=== PATIENT | female | born 1935 | race Caucasian/White ===

== ENCOUNTER 2016-09-15 16:37 | Inpatient (IN) | payer OTHER ==
[~2016-09-15] VITALS: Ht 172.7 cm; Wt 89.8 kg
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
--- NOTE | 2016-09-15 16:50 | NUR ---
PT TO XRAY VIA STRETCHER
--- NOTE | 2016-09-15 17:17 | NUR ---
PT TO CT AT THIS TIME
--- NOTE | 2016-09-15 17:23 | RADIOLOGY REPORT ---
EXAMINATION: XR HIP, LEFT CLINICAL INFORMATION: Status post fall. Rule out fracture. COMPARISON: None TECHNIQUE: AP and frog-leg lateral views of the left hip. FINDINGS: There is a mildly comminuted fracture to the femoral neck, primarily primarily subcapital in location but with an additional oblique component extending towards the greater trochanter. No appreciable intertrochanteric component. There is mild valgus angulation at the fracture site. Mild degenerative arthritis is present in the hip joint with marginal osteophytes of the acetabulum. Mild degenerative arthritis is present at the pubic symphysis. Bones are osteopenic. Calcific atherosclerosis is present in the femoral artery. IMPRESSION: Mildly comminuted fracture of the left femoral neck.
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
[2016-09-15] MEDS ORDERED: ARTHRITIS PAIN650 M2 PO (18:18)
[2016-09-15] MEDS ORDERED: ATORVASTATIN CA10 M1 PO (18:19)
[2016-09-15] MEDS ORDERED: LOSARTAN POTAS100 M1 PO (18:20)
[2016-09-15] MEDS ORDERED: METFORMIN HCL500 M4 PO (18:20)
[2016-09-15] MEDS ORDERED: ALENDRONATE SOD70 M2 PO (18:20)
[2016-09-15] MEDS ORDERED: CENTRUM SILVER1 EAC3 PO (18:21)
[2016-09-15] MEDS ORDERED: ACTOS30 M1 PO (18:21)
[2016-09-15] MEDS ORDERED: LEVEMIR FL100 UNIT/1 SC (18:22)
[2016-09-15] MEDS ORDERED: CALTRATE 600+D1 EACH PO (18:22)
[2016-09-15] MEDS ORDERED: NOVOLOG100 UNIT/2 SC (18:23)
[2016-09-15] MEDS ORDERED: FISH OIL 1,001000 MG PO (18:23)
[2016-09-15] MEDS ORDERED: ASPIRIN EC81 M1 PO (18:24)
--- NOTE | 2016-09-15 18:28 | NUR ---
VBG DRAWN AND LEFT IN ROOM, RT CURRENTLY AT BEDSIDE GIVING NEB TX AND AWARE TO TAKE SAMPLE WITH HIM.
[2016-09-15 18:37] LABS: ABSOLUTE BASOPHIL COUNT 0 /CUMM (0.0-0.2); ABSOLUTE EOSINOPHIL COUNT 0.1 /CUMM (0.0-0.7); ABSOLUTE GRANULOCYTE CT 4.3 /CUMM (1.4-6.5); ABSOLUTE LYMPH COUNT 1.6 /CUMM (1.2-3.4); ABSOLUTE MONOCYTE COUNT 0.4 /CUMM (0.10-0.60); BASOPHIL % 0.8 % (0.0-2.0); EOSINOPHIL % 1.4 % (0-5); GRANULOCYTE % 67.2 % (42.2-75.2); HEMATOCRIT 33.3 % (37-47); MEAN CORPUSCULAR HGB 29.4 PG (27.0-31.0); MEAN CORPUSCULAR HGB CONC 33.1 G/DL (33.0-37.0); MEAN CORPUSCULAR VOLUME 88.8 FL (81.0-99.0); MEAN PLATELET VOLUME 8.7 FL (7.4-10.4); PLATELET COUNT 215 /CUMM (130-400); RBC DISTRIBUTION WIDTH 15.1 % (11.5-14.5); RED BLOOD CELL CT 3.76 /CUMM (4.20-5.40); WHITE BLOOD CELL COUNT 6.4 /CUMM (4.8-10.8)
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
[2016-09-15 18:44] LABS: PT 9.9 SEC (9.4-12.5); PTT 33 SEC (25-37)
--- NOTE | 2016-09-15 18:44 | RADIOLOGY REPORT ---
EXAMINATION:\H\ \N\XR CHEST CLINICAL INFORMATION: Hip fracture. COMPARISON: None TECHNIQUE: Frontal portable view of the chest was obtained. 5:55 PM FINDINGS: Lungs are clear. No pulmonary vascular congestion. No infiltrate or pleural effusion. The heart size is normal. The cardiac and mediastinal contours are normal. There are calcifications of the thoracic aorta. There are multilevel degenerative changes of dorsal spine. Degenerative spurring of humeral head of the right shoulder the glenohumeral joint. Superior subluxation of the right humeral head of the right shoulder suggesting chronic rotator cuff tear. IMPRESSION: Unremarkable examination.
--- NOTE | 2016-09-15 18:49 | NUR ---
DR MILNER SPEAKING WITH FAMILY ABOUT NATURE OF HIP FRACTURE AND SURGICAL OPTIONS, PT MAY GO TO OR THIS EVENING. PT IS TO REMAIN NPO
--- NOTE | 2016-09-15 19:00 | NUR ---
16FR BEY PLACED. 700ML CLEAR YELLOW URINE DRAINED. URINE CULTURE SENT PER PROTOCOL
--- NOTE | 2016-09-15 19:04 | NUR ---
KALE Hylton RN IN WITH PATIENT AND FAMILY FOR OR PREP
--- NOTE | 2016-09-15 19:11 | NUR ---
PT SEEN BY ANESTHESIA. OR CHECKLIST INITIATED.
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
--- NOTE | 2016-09-15 20:04 | Admission Certification ---
Admission Certification Certification Statement - As attending physician, I certify that at the time of - admission, based on clinical presentation, severity of - symptoms, need for further diagnostic testing and - therapeutic interventions, and risk of adverse outcomes - without in-hospital treatment, in my clinical assessment, - this patient requires an acute hospital stay for a minimum - of two nights or longer. I have also considered psychsocial - factors such as support system, advanced age, financial - issues, cognitive issues, and failed out-patient treatments, - past re-admission history, safety of patient, and lack of - compliance as applicable. Specific rationale supporting this admission is: Left femur neck fracture
--- NOTE | 2016-09-15 20:12 | History & Physical ---
See Addendum NIRU MAN MD 09/15/16 2012: General Information and HPI MD Statement: I have seen and personally examined FERMIN VELOZ and documented this H&P. The patient is a 81 year old F who presented with a patient stated chief complaint of [leg pain status post fall]. Source of Information: patient, family Exam Limitations: no limitations History of Present Illness: 81-year-old female with past medical history of insulin-dependent diabetes mellitus, hypertension, hyperlipidemia, breast cancer status post radiation and lumpectomy, was brought in for evaluation status post fall. Patient fell forward when she was trying to get off the curb, and fell on her hip, with left elbow and head trauma. She was unable to move her left leg due to pain. The fall was witnessed by her , who was not able to catch her and she fell. Patient denies palpitations, dizziness, shortness of breath. No loss of consciousness and seizure-like activity was reported. X-ray done in the ED showed comminuted fracture of the left femoral neck without dislocation of the hip. Patient was medically cleared, and subsequently underwent open reduction internal fixation with cannulated screw placement on . Patient did well postop, reporting 0 out of 10 pain. Allergies/Medications Allergies: Coded Allergies: NO KNOWN ALLERGIES (03/02/12) Home Med list Acetaminophen (Arthritis Pain) 650 MG TABLET.ER 2 TAB PO QAM ARTHRITIS ( Reported) Alendronate Sodium 70 MG TABLET 1 TAB PO QWED OSTEOPOROSIS (Reported) in the morning, at least 30 minutes before the first food, beverage, or medication of the day Aspirin (Ecotrin*) 81 MG TABLET.DR 1 TAB PO DAILY HEART/BLOOD (Reported) Atorvastatin Calcium 10 MG TABLET 1 TAB PO DAILY CHOLESTEROL (Reported) Ca/D3/Mag#11/Zinc/Optical Instrument Specialist/Mihir/Bor (Caltrate 600+D Plus Tablet) 600 MG-800 TABLET 1 TAB PO DAILY SUPPLEMENT (Reported) Insulin Aspart (Novolog) 100 UNIT/ML VIAL DM (Reported) Insulin Detemir (Levemir Flextouch) 100 UNIT/ML (3 ML) INSULN.PEN 12 UNITS SC BID DM (Reported) Losartan Potassium 100 MG TABLET 1 TAB PO DAILY BP (Reported) Metformin HCl (Metformin HCl ER) 500 MG TAB.ER.24H 2 TAB PO BID DM (Reported) Multivit-Min/FA/Lycopen/Lutein (Centrum Silver Tablet) 0.4 MG-300 MCG-250 MCG TABLET 1 TAB PO DAILY SUPPLEMENT (Reported) [place]-3/Dha/Epa/Fish Oil (Fish Oil 1,000 MG Softgel) 1,000 MG (120 MG-180 MG) CAPSULE 1 CAP PO DAILY SUPPLEMENT (Reported) Pioglitazone HCl (Actos) 30 MG TABLET 1 TAB PO DAILY DM (Reported) Past History Travel History Traveled to [place] past 21 day No Medical History Neurological: NONE EENT: NONE Cardiovascular: hypertension, hyperlipidemia Respiratory: NONE Gastrointestinal: NONE Hepatic: NONE Renal: NONE Musculoskeletal: NONE Psychiatric: depression Endocrine: insulin dependent diabetes mellitus Cancer(s): BREAST CA sp radiation and lumpectomy Pneumonia Vaccine: 03/08/12 Influenza Vaccine: 01/26/12 Surgical History Surgical History: non-contributory Past Family/Social History Family History Relations & Conditions if any MOTHER Relation not specified for: *No pertinent family history Psychosocial History Who Do You Live With? spouse, child Services at Home: None Smoking Status: Never Smoked ETOH Use: denies use Illicit Drug Use: denies illicit drug use Functional Ability ADLs Independent: dressing, eating, toileting, bathing. Ambulation: independent IADLs Independent: shopping, housework, finances, food prep, telephone, transportation , medication admin. Review of Systems Review of Systems Constitutional: Denies: chills, fever, weakness. EENTM: Denies: visual changes. Cardiovascular: Denies: chest pain, orthopena, palpitations, peripheral edema. Respiratory: Denies: cough, short of breath, sputum production. GI: Denies: abdominal pain, bloating, constipation, diarrhea, nausea, changes in stool, vomiting. Genitourinary: Denies: dysuria. Exam & Diagnostic Data Last 24 Hrs of Vital Signs/I&O Vital Signs Date Time Temp Pulse Resp B/P B/P Pulse O2 O2 Flow FiO2 Mean Ox Delivery Rate 09/16 201 98.4 96 18 137/62 98 Nasal 2.0L Cannula 09/16 6 98 Nasal 2.0L Cannula 09/16 6 98.1 93 18 150/70 98 Nasal 2.0L Cannula 09/15 2018 98.3 88 16 184/81 97 Room Air 09/15 2000 98.0 88 16 173/79 06/01 1910 98.0 88 16 173/79 99 Room Air 09/15 1822 99 Room Air 09/15 1646 98.0 96 16 203/84 99 Room Air Intake & Output 09/16 0800 09/16 0000 09/15 1600 Intake Total Output Total 700 Balance -700 Output, Urine 700 Patient 89.811 kg Weight Physical Exam General Appearance Alert, Oriented X3, Cooperative, No Acute Distress Skin laceration to the left elbow HEENT PERRLA, EOMI, hematoma (4 cm diameter) over left side of the head, dry mucous membrane Neck Supple, No JVD, +2 Carotid Pulse wo Bruit, No LAD Lymphatic Axillary nl, Cervical nl Cardiovascular Normal S1, Normal S2, No Murmurs, tachycardic Lungs Clear to Auscultation, Normal Air Movement Abdomen Normal Bowel Sounds, Soft, No Tenderness Neurological Normal Speech Extremities chronic swelling due to venous insufficiency Vascular Normal Pulses, Pulses Symmetrical Last 24 Hrs of Labs/Romario: Laboratory Tests 09/15/16 1810: Anion Gap 13, Estimated GFR > 60, BUN/Creatinine Ratio 31.1 H, Glucose 221 H, Calcium 10.3 H, Total Bilirubin 0.3, AST 26, ALT 38, Alkaline Phosphatase 70, Troponin I < 0.01, Total Protein 7.4, Albumin 4.7, Globulin 2.7, Albumin/ Globulin Ratio 1.7, PT 9.9, INR 0.94, APTT 33, CBC w Diff NO MAN DIFF REQ, RBC 3.76 L, MCV 88.8, MCH 29.4, RDW 15.1 H, MPV 8.7, Gran % 67.2, Lymphocytes % 24.8, Monocytes % 5.8, Eosinophils % 1.4, Basophils % 0.8, Absolute Granulocytes 4.3, Absolute Lymphocytes 1.6, Absolute Monocytes 0.4, Absolute Eosinophils 0.1, Absolute Basophils 0, PUBS MCHC 33.1 Microbiology 09/15 1830 URINE ROUT: Urine Culture - RECD Diagnostic Data CXR Results EXAM TYPE: RAD - XRY-CHEST XRAY, ONE VIEW ONLY EXAMINATION:\H\ \N\XR CHEST CLINICAL INFORMATION: Hip fracture. COMPARISON: None TECHNIQUE: Frontal portable view of the chest was obtained. 5:55 PM FINDINGS: Lungs are clear. No pulmonary vascular congestion. No infiltrate or pleural effusion. The heart size is normal. The cardiac and mediastinal contours are normal. There are calcifications of the thoracic aorta. There are multilevel degenerative changes of dorsal spine. Degenerative spurring of humeral head of the right shoulder the glenohumeral joint. Superior subluxation of the right humeral head of the right shoulder suggesting chronic rotator cuff tear. IMPRESSION: Unremarkable examination. DICTATED BY: HANK HUNT MD DATE/TIME DICTATED:09/15/161839 Other Results EXAM TYPE: RAD - XRY-AP PELVIS EXAMINATION: XR PELVIS CLINICAL INFORMATION: Concern for hip fracture. COMPARISON: Plain films of the left hip 09/15/2016. TECHNIQUE: AP view of the pelvis. FINDINGS: Single AP view of the pelvis demonstrates demineralization of the visualized bones. No grossly displaced pelvic fractures are identified. The iliopectineal and ilioischial lines are intact and there is no diastases of the bilateral sacroiliac joints or pubic symphysis. There are mild degenerative changes involving the bilateral SI joints and pubic symphysis. There are severe degenerative changes involving the imaged lower lumbosacral spine. Redemonstrated is a linear lucency traversing the left femoral neck, corresponding to a recently identified mildly comminuted fracture of the left femoral neck. There is no appreciable dislocation of the left hip. The right hip appears to be grossly intact. IMPRESSION: No grossly displaced pelvic fractures. Acute mildly comminuted fracture of the left femoral neck without dislocation of the left hip. DICTATED BY: MARINE VENEGAS MD DATE/TIME DICTATED:09/15/162009 CONSUMER ANALYST:MOLLY EXAM TYPE: RAD - XRY-HIP 2-3 VIEWS, LEFT EXAMINATION: XR HIP, LEFT CLINICAL INFORMATION: Status post fall. Rule out fracture. COMPARISON: None TECHNIQUE: AP and frog-leg lateral views of the left hip. FINDINGS: There is a mildly comminuted fracture to the femoral neck, primarily primarily subcapital in location but with an additional oblique component extending towards the greater trochanter. No appreciable intertrochanteric component. There is mild valgus angulation at the fracture site. Mild degenerative arthritis is present in the hip joint with marginal osteophytes of the acetabulum. Mild degenerative arthritis is present at the pubic symphysis. Bones are osteopenic. Calcific atherosclerosis is present in the femoral artery. IMPRESSION: Mildly comminuted fracture of the left femoral neck. DICTATED BY: OLGA WORTHY MD DATE/TIME DICTATED:09/15/161716 CONSUMER ANALYST:MOLLY EXAM TYPE: CAT - CT CERV SPINE WO IV CONTRAST; CT HEAD WO IV CONTRAST EXAMINATION: CT HEAD AND CERVICAL SPINE WITHOUT CONTRAST CLINICAL INFORMATION: Head strike with hematoma. COMPARISON: Plain films of the cervical spine 07/20/2007. TECHNIQUE: Contiguous axial imaging was performed from the thoracic inlet to the vertex without intravenous administration of contrast. 2-D coronal and sagittal reformatted images of the cervical spine were obtained at the acquisition workstation. DLP: 1076 mGy-cm. FINDINGS: Head: Noncontrast CT imaging of the brain demonstrates a moderate to large high left parieto-occipital hematoma with associated soft tissue swelling. No acute intracranial hemorrhage, mass or mass effect or abnormal extra-axial fluid collections are identified. The density within the dural venous sinuses is within normal limits. The ventricles are normal in size, without hydrocephalus. There are no focal areas of hypoattenuation within a vascular distribution to suggest acute transcortical ischemia. The basilar cisterns are patent. No acute calvarial abnormality is identified. The imaged paranasal sinuses and mastoid air cells are well aerated. Cervical spine: Noncontrast CT of the cervical spine demonstrates mild multilevel degenerative changes of the cervical spine. There are mild to moderate degenerative changes of the cervical spine at the atlantoaxial articulation. No acute fracture or subluxation of the cervical spine is identified. Bilateral facet arthrosis contributes to varying degrees of neuroforaminal narrowing. Prevertebral soft tissues are within normal limits. The included bilateral lung apices are clear. IMPRESSION: 1. Large high left parieto-occipital hematoma and soft tissue swelling. Otherwise, no acute intracranial abnormality. 2. No acute cervical spine fracture or subluxation. DICTATED BY: MARINE VENEGAS MD DATE/TIME DICTATED:09/15/161819 EXAM TYPE: RAD - XRY-HIP 2-3 VIEWS, LEFT EXAMINATION: XR HIP, LEFT CLINICAL INFORMATION: Left hip pinning COMPARISON: 09/15/2016 TECHNIQUE: 18 intraoperative fluoroscopic images of the left hip. 2 views. Total fluoroscopic time 1 minute 16 seconds. FINDINGS: The subcapital left femoral neck fracture is again noted. There is placement of 3 cannulated screws across the fracture with near-anatomic alignment resulting. The femoral head is well-seated within its acetabulum. IMPRESSION: Fluoroscopic guidance of internal fixation of the left femoral neck fracture with anatomic alignment. DICTATED BY: NATE LAM MD DATE/TIME DICTATED:09/15/162302 Assessment/Plan Assessment: 81-year-old female with past medical history of insulin-dependent diabetes mellitus, hypertension, hyperlipidemia, breast cancer status post radiation and lumpectomy, was brought in for evaluation status post fall. X-ray done in the ED showed comminuted fracture of the left femoral neck without dislocation of the hip. Patient was medically cleared, and subsequently underwent open reduction internal fixation with cannulated screw placement on 09/15/2016. Patient admitted to for monitoring post-operatively. Problem list: # Left femoral neck fracture sp ORIF # Hypertension,HLD # IDDM # Hx of breast cancer # Left femoral neck fracture sp ORIF * Cefazolin X 2 dose * PT , TTWB with rolling walker * Watch h/h for ABLA post op * PP: Oxycodone 10 mg Q6P severe, IV tylenol 1000 mg Q6P moderate, PO tylenol Q6p mild # Hypertension,HLD * Continue Losartan 100 mg daily, Lipitor 10 mg daily, Aspirin 81 mg daily # IDDM * Levemir 12 units BID * Novolog tidac * Hold metformin and pioglitazone # Hx of breast cancer * Inform Dr. Carmen regarding patient's admission # Continue home meds Alendronate 70 mg qwed Vit D 1000 IU daily Fish oil cap Diet: CC2 PP: Oxycodone 10 mg Q6P severe, IV tylenol 1000 mg Q6P moderate, PO tylenol Q6p mild DVT ppx: alps and heparin SC FULL CODE As Ranked By This Provider Problem List: 1. Closed left hip fracture Core Measures/Miscellaneous Acute Coronary Syndrome ACS Diagnosis: No Cerebrovascular Accident CVA/TIA Diagnosis: No Congestive Heart Failure CHF Diagnosis: No Venous Thromboembolism VTE Risk Factors: Acute medical illness, Age > 40, Immobility, paresis [facility] prophylaxis d/t: No contraindications No VTE Pharm Prophylaxis d/t: No contraindications VTE Diagnosis: No VTE Type: NONE VTE Confirmed by (Test): NONE Severe Sepsis Severe Sepsis Present: No Septic Shock Septic Shock Present: No Miscellaneous Documentation Attending Case Discussed With: Dr Corey Primary Care Physician: Donnie EDMONDS MD Patient sees these Specialists Dr Jacobsen endocrinology Dr Carmen oncology Dr Krishnan radiation onc Level of Patient Care: General Medicine ANDREW OAKLEY 09/16/16 0004: Resident Review Statement Resident Statement: examined this patient, discussed with paid internship, agreed with paid internship, discussed with family, reviewed EMR data (avail), discussed with nursing , discussed with case mgmt, reviewed images, amended to note Other Findings: 81-year-old female with a past medical history of insulin-dependent diabetes mellitus, hypertension, hyperlipidemia, breast cancer status post surgery and radiation presented to the ER complains of left hip pain. According to the patient she was in her usual state of health up until this morning when she was getting onto the bus when she fell on the current and hit her left side. She states that she had her head against the wall. Denies any loss of consciousness, any seizure-like activity, any chest pain, palpitations, abnormal symptoms, lightheadedness, numbness, tingling sensation, eye rolling, urinary or fecal incontinence, tongue biting prior to the event occurring. Of note she's had a previous fall at home which was purely mechanical wear she tripped over the carpet. She denies any headache, abdominal pain, nausea, vomiting, shortness of breath, orthopnea, PND, lower extremity swelling. Vitals on admission hypertensive with a blood pressure 184/81, respiratory rate of 16, pulse of 88, afebrile saturating 97% on room air. On physical exam she is alert, and oriented 3 and in no acute distress lying comfortably in bed. HEENT revealed PERRLA, dry mucous membranes, hematoma 3cm x4cm located along left temporo-parietal area. Examination of the neck did not reveal an elevated JVP, no lymphadenopathy. Cardiovascular exam normal S1, S2, no murmurs rubs or gallops appreciated. Respiratory exam was benign with chest clear to auscultation bilaterally. Abdominal exam was benign with abdomen soft, nontender, nondistended with normal bowel sounds in all 4 quadrants. Examination of the lower extremities revealed of wound dressing located along the left lateral aspect of the hip, there was no pain however there was no bruise measuring about 4 cm x 3 cm located at the lateral aspect of the hip joint. 1+ bilateral edema. Examination of left elbow revealed a laceration wound, that was bleeding. Pulses were intact bilaterally. She had a Neuro exam exam was grossly unremarkable. Labs pertinent for a normal white blood cell count of 60 H&H of 11.0/33.3, platelet count of 215,000. Serum chemistries revealed a sodium of 140, potassium of 4.9, bicarbonate off 25, anion gap of 13, BUN 28 with a creatinine 0.9. Serum glucose elevated to 21. LFTs unremarkable with an AST/ALT 26/38, pulse of 70, troponin less than 0.01. INR 0.94. Chest x-ray was unremarkable. X-ray of hip revealed mildly commuted fracture of the left femoral neck. Head CT showed large high left parieto-occipital hematoma and soft tissue swelling otherwise no acute intracranial abnormality, no acute cervical spine fracture or subluxation. EKG revealed.... In the ER she received morphine sulfate 2 mg IV 1, losartan 25 mg by mouth 1 and insulin sliding scale Assessment and plan Admit patient to [facility] # Left hip pain secondary to femur fracture - She was evaluated by Dr. Garcia while in the ER, and was cleared for surgery as her RCRI was calculated with 1 point for insulin-dependent. She has a 0.9% risk of any major perioperative cardiovascular event. -She underwent ORIF with cannulated screw placement after she was evaluated by Ortho in the ER - Optimize pain control - PT eval in AM with TTWB. - F/U orthopedic recs Follow-up CBCs in a.m. #HTN - She received 25mg of Losartan in [facility] ED prior to surgery as she was hypertensive. - Will dose another 50mg x1,a nd resume her home dose of Losartan 100mg daily - Continue on aspirin 81 mg daily - Vitals q shift. #IDDM - Continue on Levemir 12 units BID SC, hold metformin, and Pioglitazone and place her on Novolog sliding scale. - Accucheck TIDAC/HS #HLP - Continue atorvastatin 10 mg daily omega-3 fatty acids 1050 mg daily # Osteoporosis Continue on alendronate 70 mg daily every Monday Vitamin D 3 supplements - DVT prophylaxis Heparin 5000units 3 times a day subcutaneous Diet Diabetic CODE STATUS Full code # Osteoporosis Continue on alendronate 70 mg daily every Monday Vitamin D 3 supplements - DVT prophylaxis Heparin 5000units 3 times a day subcutaneous Diet Diabetic CODE STATUS Full code
--- NOTE | 2016-09-15 20:14 | NUR ---
PRE-OP SCRUB COMPLETED. PT TOLERATED SUPPORTED REPOSITIONING WELL. L ELBOW CLEANED, DRESSED WITH BACITRACIN. BLEEDING CONTROLLED. PER ORDERING PHYSICIAN, INSULIN TO BE HELD AT THIS TIME
--- NOTE | 2016-09-15 20:15 | RADIOLOGY REPORT ---
EXAMINATION: XR PELVIS CLINICAL INFORMATION: Concern for hip fracture. COMPARISON: Plain films of the left hip 09/15/2016. TECHNIQUE: AP view of the pelvis. FINDINGS: Single AP view of the pelvis demonstrates demineralization of the visualized bones. No grossly displaced pelvic fractures are identified. The iliopectineal and ilioischial lines are intact and there is no diastases of the bilateral sacroiliac joints or pubic symphysis. There are mild degenerative changes involving the bilateral SI joints and pubic symphysis. There are severe degenerative changes involving the imaged lower lumbosacral spine. Redemonstrated is a linear lucency traversing the left femoral neck, corresponding to a recently identified mildly comminuted fracture of the left femoral neck. There is no appreciable dislocation of the left hip. The right hip appears to be grossly intact. IMPRESSION: No grossly displaced pelvic fractures. Acute mildly comminuted fracture of the left femoral neck without dislocation of the left hip.
--- NOTE | 2016-09-15 20:33 | NUR ---
DR HARRISON AT BEDSIDE TO DISCUSS PLAN
--- NOTE | 2016-09-15 23:08 | RADIOLOGY REPORT ---
EXAMINATION: XR HIP, LEFT CLINICAL INFORMATION: Left hip pinning COMPARISON: 09/15/2016 TECHNIQUE: 18 intraoperative fluoroscopic images of the left hip. 2 views. Total fluoroscopic time 1 minute 16 seconds. FINDINGS: The subcapital left femoral neck fracture is again noted. There is placement of 3 cannulated screws across the fracture with near-anatomic alignment resulting. The femoral head is well-seated within its acetabulum. IMPRESSION: Fluoroscopic guidance of internal fixation of the left femoral neck fracture with anatomic alignment.
[2016-09-16] VITALS (10 sets, daily range): BP systolic 110–180; BP diastolic 60–90
--- NOTE | 2016-09-16 01:44 | Cons- Orthopedic ---
General Information and HPI Consulting Request Date of Consult: 09/15/16 Requested By: PAMELA History of Present Illness: Tati presents to ER today with complaints of left hip pain that began after a mechanical fall earlier today. Allergies/Medications Allergies: Coded Allergies: NO KNOWN ALLERGIES (03/02/12) Home Med List: Acetaminophen (Arthritis Pain) 650 MG TABLET.ER 2 TAB PO QAM ARTHRITIS ( Reported) Alendronate Sodium 70 MG TABLET 1 TAB PO QWED OSTEOPOROSIS (Reported) in the morning, at least 30 minutes before the first food, beverage, or medication of the day Aspirin (Ecotrin*) 81 MG TABLET.DR 1 TAB PO DAILY HEART/BLOOD (Reported) Atorvastatin Calcium 10 MG TABLET 1 TAB PO DAILY CHOLESTEROL (Reported) Ca/D3/Mag#11/Zinc/Scoring Machine Operator/Mihir/Bor (Caltrate 600+D Plus Tablet) 600 MG-800 TABLET 1 TAB PO DAILY SUPPLEMENT (Reported) Insulin Aspart (Novolog) 100 UNIT/ML VIAL DM (Reported) Insulin Detemir (Levemir Flextouch) 100 UNIT/ML (3 ML) INSULN.PEN 12 UNITS SC BID DM (Reported) Losartan Potassium 100 MG TABLET 1 TAB PO DAILY BP (Reported) Metformin HCl (Metformin HCl ER) 500 MG TAB.ER.24H 2 TAB PO BID DM (Reported) Multivit-Min/FA/Lycopen/Lutein (Centrum Silver Tablet) 0.4 MG-300 MCG-250 MCG TABLET 1 TAB PO DAILY SUPPLEMENT (Reported) [place]-3/Dha/Epa/Fish Oil (Fish Oil 1,000 MG Softgel) 1,000 MG (120 MG-180 MG) CAPSULE 1 CAP PO DAILY SUPPLEMENT (Reported) Pioglitazone HCl (Actos) 30 MG TABLET 1 TAB PO DAILY DM (Reported) Past History Medical History Neurological: NONE EENT: NONE Cardiovascular: hypertension, hyperlipidemia Respiratory: NONE Gastrointestinal: NONE Hepatic: NONE Renal: NONE Musculoskeletal: NONE Psychiatric: depression Endocrine: diabetes Cancer(s): BREAST CA Surgical History Pertinent Surgical History: non-contributory Psychosocial History Services at Home: None ETOH Use: denies use Illicit Drug Use: denies illicit drug use Review of Systems Review of Systems Constitutional: Reports: no symptoms. EENTM: Reports: no symptoms. Cardiovascular: Reports: no symptoms. Respiratory: Reports: no symptoms. GI: Reports: no symptoms. Genitourinary: Reports: no symptoms. Musculoskeletal: Reports: see HPI, joint pain. Skin: Reports: no symptoms. Neurological/Psychological: Reports: no symptoms. Exam & Diagnostic Data Vital Signs and I&O Vital Signs Date Time Temp Pulse Resp B/P B/P Pulse O2 O2 Flow FiO2 Mean Ox Delivery Rate 09/15 2018 98.3 88 16 184/81 97 Room Air 09/15 2000 98.0 88 16 173/79 09/15 1910 98.0 88 16 173/79 99 Room Air 09/15 1822 99 Room Air 09/15 1646 98.0 96 16 203/84 99 Room Air Intake & Output 09/16 0809/16 0000 09/15 1600 09/15 0809/15 0000 09/14 1600 Intake Total Output Total 700 Balance -700 Output, Urine 700 Physical Exam: General Appearance: well developed/nourished, alert, awake Head: HEMATOMA POSTERIOR SCALP Eyes: Bilateral: PERRL, EOMI. Ears, Nose, Throat, Mouth: hearing grossly normal, moist mucous membrane Neck: normal inspection, supple, full range of motion Respiratory: normal breath sounds, chest non-tender, no respiratory distress, lungs clear Cardiovascular: regular rate/rhythm, normal peripheral pulses Gastrointestinal: normal bowel sounds, soft, non-tender, no organomegaly Back: normal inspection, normal range of motion Extremities: pain with movement felt mostly in left groin. No resting internal or external rotation of left leg, no gross discrepancy in leg length noted. Neurologic/Psych: no motor/sensory deficits, awake, alert, oriented x 3, normal mood/affect Skin: intact, normal color, warm/dry Imaging Results: PATIENT: TATI VELOZ PRESENT AGE: 81 PATIENT ACCOUNT NO: [id number] : 35 LOCATION: [facility] ORDERING PHYSICIAN: NAILA MILNER MD SERVICE DATE: 09/15/16 EXAM TYPE: RAD - XRY-AP PELVIS EXAMINATION: XR PELVIS CLINICAL INFORMATION: Concern for hip fracture. COMPARISON: Plain films of the left hip 09/15/2016. TECHNIQUE: AP view of the pelvis. FINDINGS: Single AP view of the pelvis demonstrates demineralization of the visualized bones. No grossly displaced pelvic fractures are identified. The iliopectineal and ilioischial lines are intact and there is no diastases of the bilateral sacroiliac joints or pubic symphysis. There are mild degenerative changes involving the bilateral SI joints and pubic symphysis. There are severe degenerative changes involving the imaged lower lumbosacral spine. Redemonstrated is a linear lucency traversing the left femoral neck, corresponding to a recently identified mildly comminuted fracture of the left femoral neck. There is no appreciable dislocation of the left hip. The right hip appears to be grossly intact. IMPRESSION: No grossly displaced pelvic fractures. Acute mildly comminuted fracture of the left femoral neck without dislocation of the left hip. DICTATED BY: MARINE VENEGAS MD DATE/TIME DICTATED:09/15/162009 [employer] ARTISTIC DIRECTOR:MOLLY DATE/TIME TRANSCRIBED:09/15/162009 CONFIDENTIAL, DO NOT COPY WITHOUT APPROPRIATE AUTHORIZATION. <Electronically signed in Other Vendor System> SIGNED BY: MARINE VENEGAS MD 09/15/162014 Assessment/Plan Assessment/Plan This is a 81 year old female with a PMH significant for insulin dependent diabetes, depression, and hyperlipidema who sustained a comminuted left femoral neck fracture after a mechanical fall while getting on to a bus earlier today. -Admit to medical service -NPO preoperatively -Plan for OR tonight for ORIF with cannulated screw placement versus apolonia- arthroplasty. Surgical plan will be made intraoperatively by Dr. Gaines when rotation and displacement of femoral head is determined. -Surgery will continue to follow post operatively Consult Acknowledgment - Thank you for your consult request.
--- NOTE | 2016-09-16 02:11 | PN- Orthopedic ---
Subjective Subjective: Post op check: Tati is resting comfortably s/p orif left hip fracture. She is presently without complaints of pain although she is acknowledging difficulty sleeping. She denies chest pain, shortness of breath and difficulty breathing. She denies nausea and vomitting. Objective Vital Signs and I&Os Vital Signs Date Time Temp Pulse Resp B/P B/P Pulse O2 O2 Flow FiO2 Mean Ox Delivery Rate 09/16 0007 98.1 93 18 150/70 98 Nasal 2.0L Cannula 09/15 2018 98.3 88 16 184/81 97 Room Air 09/15 2000 98.0 88 16 173/79 09/15 1910 98.0 88 16 173/79 99 Room Air 09/15 1822 99 Room Air 09/15 1646 98.0 96 16 203/84 99 Room Air Intake & Output 09/16 0800 09/16 0000 09/15 1600 09/15 0800 09/15 0000 09/14 1600 Intake Total Output Total 700 Balance -700 Output, Urine 700 Physical Exam: General: Drowsy, but oriented x3, no distress Cardiac: RRR, s1s2, systolic murmur auscultated Pulm: C T A bilaterally, non labored respiratory effort Abdomen: Non-distended Extremities: Distal sensation intact. Bilateral calves soft and non-tender. Surgical site left thigh dressing dry and intact, thigh compartment soft -Abrasion noted on left elbow. Does not appear to be actively bleeding at this time Assessment/Plan Assessment/Plan This is a 81 year old female, POD 0, s/p ORIF left femoral neck fracture with cannulated screw placement -Continue current pain regimen -DVT ppx per medical team -ABX: Cefazolin for 2 additional post operative doses -Consider cardiology consult for murmur if new onset -Activity: TTWB, rolling walker, needs pt assessment
--- NOTE | 2016-09-16 02:26 | NUR ---
PT ARRIVED TO FLOOR AT 0007 VIA STRETCHER. A&OX3, ON 2L NC LUNGS CLEAR, NO DISTRESS, PAIN 04/26. DRESSING TO LEFT HIP INTACT, ABRASION TO LEFT ELBOW DRESSED WITH KERLEX. IV IN PLACE, BED ALARM ENGAGED FOR FALL RISK, ORIENTED PT TO ROOM, STAFF AND CALL NORRIS WITHIN REACH. WILL MONITOR.
--- NOTE | 2016-09-16 07:31 | PN- Housestaff ---
MIRI MANN,KATE 09/16/16 0730: Subjective Follow-up For: Left femoral neck fracture s/p intramedullary pinning Subjective: I saw and examined the patient today morning She is doing well, sitting comfortably in a chair. Pain is controlled well. No overnight issues. She had some left elbow pain with swelling, ruled out fracture with x-ray. Review of Systems Constitutional: Reports: see HPI. Objective Last 24 Hrs of Vital Signs/I&O Vital Signs Date Time Temp Pulse Resp B/P B/P Pulse O2 O2 Flow FiO2 Mean Ox Delivery Rate 09/16 0706 99.4 90 18 126/60 90 Room Air 09/16 0524 18 97 Room Air 09/16 0404 98.7 87 18 136/60 98 Nasal 2.0L Cannula 09/16 0202 98.4 96 18 137/62 98 Nasal 2.0L Cannula 09/16 0007 98 Nasal 2.0L Cannula 09/16 0007 98.1 93 18 150/70 98 Nasal 2.0L Cannula 09/15 2019 98.3 88 16 184/81 97 Room Air 09/15 2001 98.0 88 16 173/79 09/15 1910 98.0 88 16 173/79 99 Room Air 09/15 1822 99 Room Air 09/15 1646 98.0 96 16 203/84 99 Room Air Intake & Output 09/16 0800 09/16 0000 09/15 1600 Intake Total 220 Output Total 600 700 Balance -380 -700 Intake, IV 120 Intake, Oral 100 Number 0 Bowel Movements Output, Urine 600 700 Patient 89.811 kg Weight Physical Exam General Appearance: Alert, Oriented X3, Cooperative, No Acute Distress Skin: No Rashes, No Breakdown, bruising in the lef thumb region HEENT: Atraumatic, PERRLA, EOMI Neck: Supple Cardiovascular: Normal S1, Normal S2, systolic murmur Lungs: Clear to Auscultation, Normal Air Movement Abdomen: Normal Bowel Sounds, Soft, No Tenderness Neurological: Normal Speech, Sensation Intact, Cranial Nerves 3-12 NL Extremities: No Clubbing, No Cyanosis Vascular: Normal Pulses Current Medications: Current Medications Sig/Dafne Start time Last Medication Dose Route Stop Time Status Admin Acetaminophen 650 MG Q6P PRN 09/16 0115 AC PO Acetaminophen 1,000 MG Q6P PRN 09/16 0115 AC 09/16 IV 0504 Alendronate Sodium 70 MG QWED 09/21 0700 AC PO Aspirin Buffered 81 MG DAILY 09/16 1000 AC PO Atorvastatin Calcium 10 MG DAILY 09/16 1000 AC PO Cefazolin Sodium 2 GM IQ8 09/16 0800 AC N/A 1 UNIT IV 09/16 1629 Cholecalciferol 1,000 IU DAILY 09/16 1000 AC PO Fish Oil 1,050 MG DAILY 09/16 1000 AC PO Heparin Sodium 5,000 UNIT Q8 09/16 0600 AC 09/16 (Porcine) SC 0508 Insulin Aspart 0 TIDAC 09/16 0800 AC SC Insulin Detemir 12 UNITS BID 09/16 1000 AC SC Insulin Human Regular 0 Q6 09/15 2005 DC SC Losartan Potassium 100 MG DAILY 09/16 1000 AC PO Losartan Potassium 50 MG ONCE ONE 09/16 0145 CAN PO 09/16 0146 Losartan Potassium 0 .STK-MED ONE 09/15 2000 DC PO Losartan Potassium 25 MG ONCE ONE 09/15 1945 DC 09/15 PO 09/15 1942000 Morphine Sulfate 0 .STK-MED ONE 09/15 1819 DC .ROUTE Morphine Sulfate 2 MG ONCE ONE 09/15 1800 DC 09/15 IV 09/15 1801 1816 Oxycodone HCl 10 MG Q6P PRN 09/16 0115 AC PO Last 24 Hrs of Lab/Romario Results Last 24 Hrs of Labs/Mics: Laboratory Tests 09/16/16 0630: Anion Gap 10, Estimated GFR > 60, BUN/Creatinine Ratio 26.3 H, Iron 14 L, Vitamin B12 265, Folate > 20.0 H, CBC w Diff NO MAN DIFF REQ, RBC 3.09 L, MCV 88.0, MCH 29.1, RDW 14.5, MPV 8.8, Gran % 76.0 H, Lymphocytes % 15.0 L, Monocytes % 7.7, Eosinophils % 0.8, Basophils % 0.5, Absolute Granulocytes 5.5, Absolute Lymphocytes 1.1 L, Absolute Monocytes 0.6, Absolute Eosinophils 0.1, Absolute Basophils 0, PUBS MCHC 33.1 Assessment/Plan Assessment: Ms. Moreira is 81-year-old female with past medical history significant for insulin-dependent diabetes mellitus, hypertension, hyperlipidemia came to the ER after a mechanical fall. She fell on her left hip and left elbow while trying to get off the curb. She found to have left femoral neck fracture - underwent surgery with intramedullary screw fixation by Harvey Gaines MD after cardiac clearance with RCRI of 0.9%. Admitted to general medicine floor Plan Left humeral neck (mildly comminuted subacapital) fracture status post intramedullary screw fixation * Pain control is adequate with IV Tylenol and Roxicodone * Physical therapy with total weight bearing * monitoring his H&H for postoperative acute blood loss * H&H at admission --> 01/11 today Left elbow swelling and injury * X-ray ruled out fracture * Pain control History of hypertension * Continue losartan 50 mg History of insulin-dependent diabetes mellitus * Continue subcutaneous Levemir 40 units twice a day * Low-dose insulin sliding scale History of hyperlipidemia * Continue atorvastatin 20 mg DVT prophylaxis * Subcutaneous heparin 5000 units 3 times a day CODE STATUS * full code Problem List: 1. Closed left hip fracture Pain Ratin Pain Location: left Pain Goal: Pain 4 or less Pain Plan: Tylenol prn Tomorrow's Labs & Rationales: CBC to monitor H&H Iron studies TAMMIE MANN,[place]RI[place] 09/16/16 1220: Attending MD Review Statement Attending Statement Attending MD Statement: examined this patient, discuss w/resident/PA/COMMUNITY HEALTH COORDINATOR, agreed w/resident/PA/COMMUNITY HEALTH COORDINATOR, reviewed EMR data (avail), discussed with nursing, discussed with case mgmt, amended to note Attending Assessment/Plan: Patient seen and examined sitting up in her chair not in any acute distress. Daughter present at the bedside. She underwent hip pinning yesterday. She reports adequate pain control with the current regimen for now. She offers no other complaints at present. On examination surgical site left hip is intact with no drainage or surrounding erythema. Distal pulses are palpable. Problems: 1. Left femoral neck fracture following mechanical fall; status post pinning postop day 1. 2. Insulin-dependent diabetes mellitus 3. Postoperative anemia on chronic anemia 4. Hypertension Plan: -Patient is total weightbearing per recommendations of the orthopedic service. DVT prophylaxis with heparin subcutaneous. -She is currently receiving pain management with IV Tylenol and Roxicodone. -Begin patient on a bowel regimen to prevent opioid-induced constipation. -Check iron profile. Monitor hemoglobin levels closely. Transfuse to keep hemoglobin level greater than 8. -Continue her home hypertension regimen. Continue her home insulin regimen -Anticipate [facility] if she is not cleared for discharge home by the physical therapy service.
--- NOTE | 2016-09-16 08:03 | PN- Orthopedic ---
Subjective Subjective: pod#1 s/p perc pinning left hip fracture no major issues overnight c/o left wrist pain deneis cp, sob, no n+v with diet Objective Vital Signs and I&Os Vital Signs Date Time Temp Pulse Resp B/P B/P Pulse O2 O2 Flow FiO2 Mean Ox Delivery Rate / 0739 99.4 92 18 138/80 92 Room Air / 0706 99.4 90 18 126/60 90 Room Air 09/16 0524 18 97 Room Air / 0404 98.7 87 18 136/60 98 Nasal 2.0L Cannula 09/16 0202 98.4 96 18 137/62 98 Nasal 2.0L Cannula 09/16 0007 98 Nasal 2.0L Cannula 09/16 0007 98.1 93 18 150/70 98 Nasal 2.0L Cannula 09/15 2018 98.3 88 16 184/81 97 Room Air 09/15 2001 98.0 88 16 173/79 06/ 1910 98.0 88 16 173/79 99 Room Air 09/15 1822 99 Room Air 09/15 1646 98.0 96 16 203/84 99 Room Air Intake & Output / 0800 06/ 0000 / 1600 / 0800 09/15 0000 09/14 1600 Intake Total 220 Output Total 700 700 Balance -480 -700 Intake, IV 120 Intake, Oral 100 Number 0 Bowel Movements Output, Urine 700 700 Patient 198 lb Weight Physical Exam: cv: rrr lungs: clear abd: soft, +bs ext: left ue - wrist swelling, pain to distal radius palp left le - drsg dry, thigh soft distal cms intact no calf tenderness bilat williamson: clear urine Assessment/Plan Assessment/Plan left hip as expected left wrist pain and swelling plan left wrist xray now, r/o fracture hold pt until wrist xray complete when ood with pt TTWB left le rec d/c williamson will probably need str upon d/c Core Measures/Miscellaneous Venous Thromboembolism VTE Risk Factors: Age > 40, Surgery VTE Contraindications: No Contraindications VTE Diagnosis: No VTE Type: NONE VTE Confirmed by (Test): NONE Beta Shaylee Is Beta Shaylee a Home Med? No If Yes, Was This Ordered Today? No Antibiotics Is Patient on Antibiotics? Yes If Yes: prophylaxis
[2016-09-16 08:12] LABS: ABSOLUTE BASOPHIL COUNT 0 /CUMM (0.0-0.2); ABSOLUTE EOSINOPHIL COUNT 0.1 /CUMM (0.0-0.7); ABSOLUTE GRANULOCYTE CT 5.5 /CUMM (1.4-6.5); ABSOLUTE LYMPH COUNT 1.1 /CUMM (1.2-3.4); ABSOLUTE MONOCYTE COUNT 0.6 /CUMM (0.10-0.60); BASOPHIL % 0.5 % (0.0-2.0); EOSINOPHIL % 0.8 % (0-5); MEAN CORPUSCULAR HGB 29.1 PG (27.0-31.0); MEAN CORPUSCULAR HGB CONC 33.1 G/DL (33.0-37.0); MEAN PLATELET VOLUME 8.8 FL (7.4-10.4); PLATELET COUNT 165 /CUMM (130-400); RBC DISTRIBUTION WIDTH 14.5 % (11.5-14.5); RED BLOOD CELL CT 3.09 /CUMM (4.20-5.40); WHITE BLOOD CELL COUNT 7.2 /CUMM (4.8-10.8)
[2016-09-16 08:44] LABS: HEMATOCRIT 27.2 % (37-47)
--- NOTE | 2016-09-16 08:52 | RADIOLOGY REPORT ---
EXAMINATION: XR WRIST, LEFT CLINICAL INFORMATION: Pain and swelling status post fall. COMPARISON: None TECHNIQUE: AP, lateral, and oblique views of the left wrist. FINDINGS: Bone mineral density is mildly decreased without evidence of fracture or dislocation. No focal osseous lesions are seen. There are degenerative changes with joint space narrowing in the radiocarpal, midcarpal and carpometacarpal joints most notably in the first carpometacarpal joint with reactive mixed sclerotic and lucent changes. There is chondrocalcinosis in the triangular fibrocartilage. There is negative ulnar variance. IMPRESSION: Osteopenia with degenerative changes, no fractures are seen.
--- NOTE | 2016-09-16 16:00 | NUR ---
PT TREMULOUS. NO COMPLAINTS OF DIZZINESS OR FEVER AT THIS TIME. VITALS OBTAINED. BP 180/90. HEART RATE 96. 93% ON RA. 98.4 ORALLY. BP REPORTED TO DR. TURNER. PER , RECHECK BP. BLOOD SUGAR CHECKED, STABLE AT THIS TIME. PT STATES PAIN IS TOLERABLE AT THIS TIME. WILL MONITOR.
--- NOTE | 2016-09-16 18:43 | Patient Discharge Instructions ---
Discharge Instructions General Discharge Information You were seen/treated for: Left hip femoral neck fracture You had these procedures: left hip intramedullary pinning Special Instructions: Continue toe-touch weightbearing, follow-up as outpatient in 10-14 days postoperative. Please follow up with Dr. Richardson in a week. Please follow up with Dr. Harvey Gaines in 2 weeks. Please follow up with Dr. Shelton for further evaluation of cardiac murmur. Please return to emergency if symptoms worsen. Diet Continue normal diet: Yes Recommended Diet: Heart Healthy Activity Full Activity/No Limits: No Activity Self Limited: Yes Acute Coronary Syndrome Inclusion Criteria At DC or during hospital stay patient has or had the following: ACS DIAGNOSIS No Discharge Core Measures Meds if any: Prescribed or Continued at Discharge Meds if any: NOT Prescribed or Continued at Discharge Congestive Heart Failure Inclusion Criteria At DC or during hospital stay patient has or had the following: CHF DIAGNOSIS No Discharge Core Measures Meds if any: Prescribed or Continued at Discharge Meds if any: NOT Prescribed or Continued at Discharge Cerebrovascular accident Inclusion Criteria At DC or during hospital stay patient has or had the following: CVA/TIA Diagnosis No Discharge Core Measures Meds if any: Prescribed or Continued at Discharge Meds if any: NOT Prescribed or Continued at Discharge Venous thromboembolism Inclusion Criteria VTE Diagnosis No VTE Type NONE VTE Confirmed by (Test) NONE Discharge Core Measures - Per Current guidelines, there needs to be overlap - treatment for the first 5 days of Warfarin therapy. - If discharged on Warfarin prior to 5 days of - overlap therapy, the patient will need to be - assessed for post discharge needs including - *Post discharge parental anticoagulation - *Warfarin and/or parental anticoagulation education - *Follow up date to check INR post discharge At least 5 days overlap therapy as Inpatient No Meds if any: Prescribed or Continued at Discharge Note: Overlap Therapy is Warfarin and Anticoagulant Meds if any: NOT Prescribed or Continued at Discharge
--- NOTE | 2016-09-16 22:20 | NUR ---
PT APPEARS CONFUSED. UNABLE TO TELL HER AND WHY SHE IS IN THE HOSPITAL. PT'S T 100.6 AND BP 160/90. FORENSIC ANALYST KARLOS AMBROCIO UPDATED WHO SAID THAT HE WILL COME CHECK THE PT. SURGICAL SITE TO L HIP CDI. +PULSES. +CMS. DENIES NUMBNESS OR TINGLING. TYLENOL 650MG GIVEN. VOIDING WELL. WILL CONTINUE TO MONITOR.
--- NOTE | 2016-09-16 23:42 | NUR ---
PT HAD TEMP 100.6 AT 2230. PO TYL WAS ADMINISTERED AT THAT TIME. RECHECKED TEMP 101.3 AT THIS TIME. CLIENT SOLUTIONS DIRECTOR KARLOS AMBROCIO UPDATED WHO ADVISED TO KEEP AN EYE ON THE PT AND RECHECK TEMP AFTER 30 MINS.
[2016-09-17 06:00] VITALS: BP 162/80
[2016-09-17 08:36] LABS: ABSOLUTE BASOPHIL COUNT 0 /CUMM (0.0-0.2); ABSOLUTE EOSINOPHIL COUNT 0.1 /CUMM (0.0-0.7); ABSOLUTE GRANULOCYTE CT 3.8 /CUMM (1.4-6.5); ABSOLUTE MONOCYTE COUNT 0.5 /CUMM (0.10-0.60); BASOPHIL % 0.6 % (0.0-2.0); EOSINOPHIL % 2.2 % (0-5); HEMATOCRIT 26.7 % (37-47); MEAN CORPUSCULAR HGB 29.3 PG (27.0-31.0); MEAN CORPUSCULAR HGB CONC 33.6 G/DL (33.0-37.0); MEAN CORPUSCULAR VOLUME 87.2 FL (81.0-99.0); MEAN PLATELET VOLUME 8.4 FL (7.4-10.4); PLATELET COUNT 143 /CUMM (130-400); RBC DISTRIBUTION WIDTH 14.7 % (11.5-14.5); RED BLOOD CELL CT 3.06 /CUMM (4.20-5.40); WHITE BLOOD CELL COUNT 5.5 /CUMM (4.8-10.8)
--- NOTE | 2016-09-17 08:41 | PN- Housestaff ---
JEY MANN,PROSPER 09/17/16 0840: Subjective Follow-up For: Left femoral neck fracture s/p intramedullary pinning Subjective: I saw and examined the patient today morning. She is doing well, sitting comfortably in her bed. Pain is controlled well. No overnight issues. Review of Systems Constitutional: Reports: no symptoms. Objective Last 24 Hrs of Vital Signs/I&O Vital Signs Date Time Temp Pulse Resp B/P B/P Pulse O2 O2 Flow FiO2 Mean Ox Delivery Rate 09/17 1547 98.9 80 20 140/80 94 / 1002 98.3 90 18 134/70 93 Room Air 09/17 0952 98.3 90 18 134/70 / 0600 99.4 91 18 162/80 95 Room Air / 0040 99.5 09/16 2340 101.3 09/16 2228 100.6 99 18 160/90 90 Intake & Output 09/17 1600 / 0800 09/17 0000 Intake Total 1300 100 200 Output Total 1000 200 Balance 1300 -900 0 Intake, Oral 1300 100 200 Number 0 Bowel Movements Output, Urine 1000 200 Physical Exam General Appearance: Alert, Oriented X3, Cooperative, No Acute Distress Other Physical Findings: No changes from yesterday's clinical findings. Current Medications: Current Medications Sig/Dafne Start time Last Medication Dose Route Stop Time Status Admin Acetaminophen 1,000 MG .STK-MED ONE 09/17 1116 DC IV 09/17 1117 Acetaminophen 650 MG Q6P PRN 09/16 0115 AC 09/16 PO 2226 Acetaminophen 1,000 MG Q6P PRN / 0115 AC 09/17 IV 1119 Alendronate Sodium 70 MG QWED 09/21 0700 AC PO Aspirin Buffered 81 MG DAILY 09/16 1000 AC 09/17 PO 0952 Atorvastatin Calcium 10 MG DAILY 09/16 1000 AC 09/17 PO 0952 Cholecalciferol 1,000 IU DAILY 09/16 1000 AC 09/17 PO 0952 Docusate Sodium 100 MG DAILY 09/16 1605 AC 09/17 PO 0952 Ferrous Gluconate 325 MG BID 09/16 2200 AC 09/17 PO 2135 Fish Oil 1,050 MG DAILY / 1000 AC 09/17 PO 0952 Heparin Sodium 5,000 UNIT Q8 09/16 0600 AC 09/17 (Porcine) SC 2135 Insulin Aspart 0 TIDAC 09/16 0800 AC 09/17 PR 1734 Insulin Detemir 12 UNITS BID 09/16 1000 AC 09/17 SC 2136 Losartan Potassium 100 MG DAILY 09/16 1000 AC 09/17 PO 0952 Oxycodone HCl 10 MG .STK-MED ONE 09/17 0636 DC PO 09/17 0637 Oxycodone HCl 10 MG Q6P PRN 09/16 0115 AC 09/17 PO 0637 Polyethylene Glycol 17 GM DAILY 09/16 1604 AC 09/17 PO 0951 Senna/Docusate Sodium 1 TAB BID 09/16 2200 AC 09/17 PO 2135 Last 24 Hrs of Lab/Romario Results Last 24 Hrs of Labs/Mics: Laboratory Tests 09/17/16 0744: Haptoglobin Pending 09/17/16 0744: Iron 12 L, TIBC 309, Ferritin 114.0, Lactate Dehydrogenase 649 H, CBC w Diff NO MAN DIFF REQ, RBC 3.06 L, MCV 87.2, MCH 29.3, RDW 14.7 H, MPV 8.4, Gran % 69.0, Lymphocytes % 18.9 L, Monocytes % 9.3, Eosinophils % 2.2, Basophils % 0.6 , Absolute Granulocytes 3.8, Absolute Lymphocytes 1.0 L, Absolute Monocytes 0.5 , Absolute Eosinophils 0.1, Absolute Basophils 0, PUBS MCHC 33.6 Assessment/Plan Assessment: Ms. Moreira is 81-year-old female with past medical history significant for insulin-dependent diabetes mellitus, hypertension, hyperlipidemia came to the ER after a mechanical fall. She fell on her left hip and left elbow while trying to get off the curb. She found to have left femoral neck fracture - underwent surgery with intramedullary screw fixation by Harvey Gaines MD after cardiac clearance with RCRI of 0.9%. Admitted to general medicine floor Plan Left humeral neck (mildly comminuted subacapital) fracture status post intramedullary screw fixation * Pain control is adequate with IV Tylenol and Roxicodone * Physical therapy with total weight bearing * monitoring his H&H for postoperative acute blood loss * H&H at admission --> 01/10.7 today Left elbow swelling and injury * X-ray ruled out fracture * Pain control History of hypertension * Continue losartan 50 mg History of insulin-dependent diabetes mellitus * Continue subcutaneous Levemir 40 units twice a day * Low-dose insulin sliding scale History of hyperlipidemia * Continue atorvastatin 20 mg DVT prophylaxis * Subcutaneous heparin 5000 units 3 times a day CODE STATUS * full code Problem List: 1. Closed left hip fracture Pain Ratin Pain Location: hip Pain Goal: Pain 4 or less Pain Plan: prn Tomorrow's Labs & Rationales: WESTON SALAMANCA MD,IVANA 09/17/16 1300: Attending MD Review Statement Attending Statement Attending MD Statement: examined this patient, discuss w/resident/PA/SENIOR PEOPLESOFT DEVELOPER, agreed w/resident/PA/SENIOR PEOPLESOFT DEVELOPER, discussed with family, reviewed EMR data (avail), discussed with nursing, discussed with case mgmt, reviewed images, amended to note Attending Assessment/Plan: Patient resting comfortably in bed. Pain is well controlled on the current regimen. Had low-grade fever last night, most likely post surgical procedure. No need for any further workup at this point as denies any shortness of breath, cough, urinary symptoms, abdominal pain. Continue physical therapy as per orthopedic recommendations for weightbearing. Discharge to short-term rehabilitation when bed available.
[2016-09-17 10:02] VITALS: BP 134/70
--- NOTE | 2016-09-17 11:41 | PN- Orthopedic ---
See Addendum Subjective Subjective: Awake, alert Pain tolerable Objective Vital Signs and I&Os Vital Signs Date Time Temp Pulse Resp B/P B/P Pulse O2 O2 Flow FiO2 Mean Ox Delivery Rate 09/17 1002 98.3 90 18 134/70 93 Room Air 06/ 0952 98.3 90 18 134/70 06/ 0600 99.4 91 18 162/80 95 Room Air 06/ 0040 99.5 06/ 2340 101.3 06/ 2228 100.6 99 18 160/90 90 06/02 1645 168/70 06/02 1600 98.4 96 16 180/90 93 Room Air / 1500 Room Air Room Air / 1425 99.5 86 20 140/70 90 Room Air / 1159 Room Air Room Air Intake & Output 09/17 1600 06 0800 / 0000 / 1600 / 0800 / 0000 Intake Total 100 200 440 220 Output Total 0055 958 8621 800 700 Balance -900 0 -960 -580 -700 Intake, IV 80 120 Intake, Oral 100 200 360 100 Number 0 0 Bowel Movements Output, Urine 1999 444 6193 800 700 Patient 198 lb Weight Physical Exam: Has not ambulated yet today OOB to chair yesterday Wound: dresing changed, tiffanie intact, no drainage LLE: no edema, positive sensate, no calf tenderness Current Medications: Current Medications Sig/Dafne Start time Last Medication Dose Route Stop Time Status Admin Acetaminophen 650 MG Q6P PRN 09/16 0115 AC 09/16 PO 2226 Acetaminophen 1,000 MG Q6P PRN 09/16 0115 AC 09/17 IV 1119 Alendronate Sodium 70 MG QWED 09/21 0700 AC PO Aspirin Buffered 81 MG DAILY 09/16 1000 AC 09/17 PO 0952 Atorvastatin Calcium 10 MG DAILY 09/16 1000 AC 09/17 PO 0952 Cefazolin Sodium 2 GM IQ8 09/16 0800 DC 09/16 N/A 1 UNIT IV 09/16 1629 1625 Cholecalciferol 1,000 IU DAILY 09/16 1000 AC 09/17 PO 0952 Docusate Sodium 100 MG DAILY 09/16 1605 AC 09/17 PO 0952 Ferrous Gluconate 325 MG BID 09/16 2200 AC 09/17 PO 0953 Fish Oil 1,050 MG DAILY 09/16 1000 AC 09/17 PO 0952 Heparin Sodium 5,000 UNIT Q8 09/16 0600 AC 09/17 (Porcine) SC 0631 Insulin Aspart 0 TIDAC 09/16 0800 AC 09/16 SC 1715 Insulin Detemir 12 UNITS BID 09/16 1000 AC 09/17 SC 0951 Losartan Potassium 100 MG DAILY 09/16 1000 AC 09/17 PO 0952 Oxycodone HCl 10 MG .STK-MED ONE 09/16 1228 DC PO 09/16 1229 Oxycodone HCl 10 MG Q6P PRN 09/16 0115 AC 09/17 PO 0637 Patient Medication 1 ED .STK-MED ONE 09/16 1436 DC Teaching ED 09/16 1437 Polyethylene Glycol 17 GM DAILY 09/16 1604 AC 09/17 PO 0951 Senna/Docusate Sodium 1 TAB BID 09/16 2200 AC 09/17 PO 0952 Assessment/Plan Assessment/Plan 81yo female s/p L hip pinning Continue PT - toe touch weight bear dvt ppx per primary team dc per primary team likely will need str Dressings to be changed daily - clean, dry dressing change No bathing or soaking, may shower follow up 2 weeks after dischrge - call for an appointment
[2016-09-17 15:47] VITALS: BP 140/80
[2016-09-17 21:50] VITALS: BP 160/70
[2016-09-18 06:30] VITALS: BP 134/68
--- NOTE | 2016-09-18 08:46 | PN- Housestaff ---
JEY MANN,PROSPER 09/18/16 0846: Subjective Follow-up For: Left femoral neck fracture s/p intramedullary pinning Subjective: I saw and examined the patient today morning. She is doing well, sitting comfortably in her bed. Pain is controlled well. No overnight issues. Review of Systems Constitutional: Reports: no symptoms. Objective Last 24 Hrs of Vital Signs/I&O Vital Signs Date Time Temp Pulse Resp B/P B/P Pulse O2 O2 Flow FiO2 Mean Ox Delivery Rate 09/18 1456 97.9 81 20 160/70 94 06/ 1152 99.3 68 20 160/80 06 1053 160/80 06/ 0630 99.3 68 20 134/68 94 Room Air 06 2150 100.9 92 20 160/70 94 Room Air Intake & Output 09/18 1600 / 0800 06/04 0000 Intake Total 800 0 450 Output Total 1000 850 600 Balance -200 -850 -150 Intake, IV 0 Intake, Oral 800 0 450 Number 1 0 Bowel Movements Output, Urine 1000 850 600 Physical Exam General Appearance: Alert, Oriented X3, Cooperative, No Acute Distress Other Physical Findings: No changes from yesterday's clinical findings. Current Medications: Current Medications Sig/Dafne Start time Last Medication Dose Route Stop Time Status Admin Acetaminophen 650 MG Q6P PRN 09/16 0115 DCD 06 PO 2226 Acetaminophen 1,000 MG Q6P PRN / 0115 DCD 06 IV 1119 Alendronate Sodium 70 MG QWED 09/21 0700 DCD PO Aspirin Buffered 81 MG DAILY 09/16 1000 DCD 06 PO 1053 Atorvastatin Calcium 10 MG DAILY 09/16 1000 DCD 06/04 PO 1053 Cholecalciferol 1,000 IU DAILY / 1000 DCD 06/04 PO 1052 Docusate Sodium 100 MG DAILY / 1605 DCD 06 PO 0952 Ferrous Gluconate 325 MG BID 09/16 2200 DCD 06/ PO 1053 Fish Oil 1,050 MG DAILY / 1000 DCD 06/04 PO 1052 Heparin Sodium 5,000 UNIT Q8 09/16 0600 DCD 06 (Porcine) SC 1400 Insulin Aspart 0 TIDAC 09/16 0800 DCD 09/18 SC 1626 Insulin Detemir 12 UNITS BID 06/02 1000 DCD 06/04 SC 1053 Losartan Potassium 100 MG DAILY 09/16 1000 DCD 09/18 PO 1053 Oxycodone HCl 10 MG Q6P PRN 09/16 0115 DCD 09/17 PO 0637 Polyethylene Glycol 17 GM DAILY 09/16 1604 DCD 09/17 PO 0951 Senna/Docusate Sodium 1 TAB BID 09/16 2200 DCD 09/17 PO 2135 Last 24 Hrs of Lab/Romario Results Last 24 Hrs of Labs/Mics: Laboratory Tests 09/18/16 0635: CBC w Diff NO MAN DIFF REQ, RBC 3.11 L, MCV 88.2, MCH 29.3, RDW 14.6 H, MPV 9.1, Gran % 62.1, Lymphocytes % 23.3, Monocytes % 8.1, Eosinophils % 5.8 H, Basophils % 0.7, Absolute Granulocytes 3.3, Absolute Lymphocytes 1.2, Absolute Monocytes 0.4, Absolute Eosinophils 0.3, Absolute Basophils 0, PUBS MCHC 33.2 Assessment/Plan Assessment: 81-year-old female with past medical history of insulin-dependent diabetes mellitus, hypertension, hyperlipidemia, breast cancer status post radiation and lumpectomy, was brought in for evaluation status post fall. She was found to have left femoral neck fracture, and was admitted in the general medical floor for the following issues: Left femoral leg fracture Patient underwent open reduction and internal fixation of left femoral neck fracture with cannulated screw placement on 09/16/16 by orthopedic surgery team. Patient was followed up by orthopedic surgical team, who advised us regarding ambulation, DVT prophylaxis and antibiotics. Patient's hemoglobin on admission was 11 which dropped to 9 after surgery, but has stayed constant afterwards. Orthopedic service mentioned that the initial hemoglobin of 11 could be due to hemoconcentration as she was dehydrated at that time, and that she has history of chronic anemia. Patient was asymptomatic, thus this was not pursued in her current admission. Patient worked with physical therapy, but still requires continued physical therapy thus discharging her to a short term rehabilitation facility. Patient has to continue toe-touch bearing, and follow-up as an outpatient in 10-14 days postoperatively to orthopedic surgery clinic. Left elbow swelling and injury Patient complained of chronic left elbow swelling. X-ray was done and fracture/ dislocation was ruled out. Adequate analgesia was provided. History of hypertension Losartan 50 mg orally continued daily. Plan to continue. History of insulin-dependent diabetes mellitus Patient was placed on diabetic diet, long-acting insulin Levemir 40 units twice daily, and a low-dose insulin sliding scale. We'll resume her home medications after discharge. History of hyperlipidemia Continued atorvastatin 20 mg orally daily. Discharge disposition: STR with PT recommendations. Follow up with Orthopedics, PCP, Cardiology, and follow instructions as mentioned in Discharge summary, and continue toe-touch weightbearing for now. DVT prophylaxis was provided with subcutaneous heparin. She holds a full CODE STATUS. Problem List: 1. Closed left hip fracture Pain Ratin Pain Location: hip, at times Pain Goal: Pain 4 or less Pain Plan: prn Tomorrow's Labs & Rationales: - CHEIKH MANN,[facility] 09/18/16 1144: Attending MD Review Statement Attending Statement Attending MD Statement: examined this patient, discuss w/resident/PA/COIL WINDING SUPERVISOR, agreed w/resident/PA/COIL WINDING SUPERVISOR, discussed with family, reviewed EMR data (avail), discussed with nursing, discussed with case mgmt, reviewed images, amended to note Attending Assessment/Plan: Patient sitting comfortably in bed. Her pain is much better today. There is a drop in her H&H post operatively this was discussed with orthopedic PA who has examined the surgical site and assured that there is no hematoma or enlargement of the hip, and patient can be safely discharged to short-term rehabilitation today. H&H is stable for last 2 days, there is no further drop. Patient can be discharged to rehabilitation today with iron supplements and instructions to check CBC on Monday09/20/16 to make sure there is no further drop. Please make sure the weightbearing and physical therapy instructions given by orthopedic is included in the discharge paperwork. Follow-up orthopedic as an outpatient. sure the weightbearing and physical therapy instructions given by orthopedic is included in the discharge paperwork. Follow-up orthopedic as an outpatient.
[2016-09-18 08:53] LABS: ABSOLUTE BASOPHIL COUNT 0 /CUMM (0.0-0.2); ABSOLUTE EOSINOPHIL COUNT 0.3 /CUMM (0.0-0.7); ABSOLUTE GRANULOCYTE CT 3.3 /CUMM (1.4-6.5); ABSOLUTE LYMPH COUNT 1.2 /CUMM (1.2-3.4); ABSOLUTE MONOCYTE COUNT 0.4 /CUMM (0.10-0.60); BASOPHIL % 0.7 % (0.0-2.0); EOSINOPHIL % 5.8 % (0-5); GRANULOCYTE % 62.1 % (42.2-75.2); HEMATOCRIT 27.5 % (37-47); MEAN CORPUSCULAR HGB 29.3 PG (27.0-31.0); MEAN CORPUSCULAR HGB CONC 33.2 G/DL (33.0-37.0); MEAN CORPUSCULAR VOLUME 88.2 FL (81.0-99.0); MEAN PLATELET VOLUME 9.1 FL (7.4-10.4); PLATELET COUNT 156 /CUMM (130-400); RBC DISTRIBUTION WIDTH 14.6 % (11.5-14.5); RED BLOOD CELL CT 3.11 /CUMM (4.20-5.40); WHITE BLOOD CELL COUNT 5.3 /CUMM (4.8-10.8)
[2016-09-18] MEDS ORDERED: SENNA PLUS TAB1 EACH PO (09:03)
[2016-09-18] MEDS ORDERED: FERROUS GLUCON324 M2 PO (09:03)
[2016-09-18] MEDS ORDERED: MIRALAX119 GM PO (09:03)
[2016-09-18] MEDS ORDERED: DOCUSATE SODIU100 M3 PO (09:04)
[2016-09-18] MEDS ORDERED: VITAMIN D31000 UNI2 PO (09:04)
[2016-09-18] MEDS ORDERED: OMEPRAZOLE20 M3 PO (09:04)
[2016-09-18] MEDS ORDERED: OXYCODONE HCL5 M1 PO (09:06)
--- NOTE | 2016-09-18 09:38 | PN- Orthopedic ---
Subjective Subjective: Mild to moderate complaints of left hip pain with motion, no pain at rest. No other complaints Objective Vital Signs and I&Os Vital Signs Date Time Temp Pulse Resp B/P B/P Pulse O2 O2 Flow FiO2 Mean Ox Delivery Rate 09/18 0630 99.3 68 20 134/68 94 Room Air 09/17 2150 100.9 92 20 160/70 94 Room Air 09/17 1547 98.9 80 20 140/80 94 06 1002 98.3 90 18 134/70 93 Room Air 09/17 0952 98.3 90 18 134/70 Intake & Output 09/18 1600 09/18 0800 09/18 0000 09/17 1600 09/17 0800 09/17 0000 Intake Total 450 1300 100 200 Output Total 906 540 9588 200 Balance -750 -150 1300 -900 0 Intake, Oral 450 1300 100 200 Number 0 0 Bowel Movements Output, Urine 879 310 6490 200 Physical Exam: Well-developed well-nourished no apparent distress. HEENT: Atraumatic, extraocular motion intact Neck: Supple, no lymphadenopathy Respiratory: No respiratory distress Extremities: No edema Left lower extremity hip dressing in place, Dressing clean dry and intact with without discharge Incision without erythema Mild thigh edema No signs of infection. No shortening or rotation Hip range of motion is limited and without unexpected pain Neurovascularly intact distally Bilateral calves are supple, nontender. Neuro: Alert and oriented x3 Psych: Mood affect normal, normal memory normal judgment. Skin: Warm and dry, no rash on exposed skin Results Last 48 Hours of Labs: Laboratory Tests 09/18 09/17 0635 0744 Hematology CBC w Diff NO MAN DIFF REQ WBC (4.8 - 10.8 /CUMM) 5.3 RBC (4.20 - 5.40 /CUMM) 3.11 L Hgb (12.0 - 16.0 G/DL) 9.1 L Hct (37 - 47 %) 27.5 L MCV (81.0 - 99.0 FL) 88.2 MCH (27.0 - 31.0 PG) 29.3 RDW (11.5 - 14.5 %) 14.6 H Plt Count (130 - 400 /CUMM) 156 MPV (7.4 - 10.4 FL) 9.1 Gran % (42.2 - 75.2 %) 62.1 Lymphocytes % (20.5 - 51.1 %) 23.3 Monocytes % (1.7 - 9.3 %) 8.1 Eosinophils % (0 - 5 %) 5.8 H Basophils % (0.0 - 2.0 %) 0.7 Absolute Granulocytes (1.4 - 6.5 /CUMM) 3.3 Absolute Lymphocytes (1.2 - 3.4 /CUMM) 1.2 Absolute Monocytes (0.10 - 0.60 /CUMM) 0.4 Absolute Eosinophils (0.0 - 0.7 /CUMM) 0.3 Absolute Basophils (0.0 - 0.2 /CUMM) 0 PUBS MCHC (33.0 - 37.0 G/DL) 33.2 Haptoglobin Pending 09/17 0744 Chemistry Iron (37 - 170 ug/dL) 12 L TIBC (265 - 497 ug/dL) 309 Ferritin (11.1 - 264 ng/mL) 114.0 Lactate Dehydrogenase (313 - 618 U/L) 649 H Hematology CBC w Diff NO MAN DIFF REQ WBC (4.8 - 10.8 /CUMM) 5.5 RBC (4.20 - 5.40 /CUMM) 3.06 L Hgb (12.0 - 16.0 G/DL) 9.0 L Hct (37 - 47 %) 26.7 L MCV (81.0 - 99.0 FL) 87.2 MCH (27.0 - 31.0 PG) 29.3 RDW (11.5 - 14.5 %) 14.7 H Plt Count (130 - 400 /CUMM) 143 MPV (7.4 - 10.4 FL) 8.4 Gran % (42.2 - 75.2 %) 69.0 Lymphocytes % (20.5 - 51.1 %) 18.9 L Monocytes % (1.7 - 9.3 %) 9.3 Eosinophils % (0 - 5 %) 2.2 Basophils % (0.0 - 2.0 %) 0.6 Absolute Granulocytes (1.4 - 6.5 /CUMM) 3.8 Absolute Lymphocytes (1.2 - 3.4 /CUMM) 1.0 L Absolute Monocytes (0.10 - 0.60 /CUMM) 0.5 Absolute Eosinophils (0.0 - 0.7 /CUMM) 0.1 Absolute Basophils (0.0 - 0.2 /CUMM) 0 PUBS MCHC (33.0 - 37.0 G/DL) 33.6 Assessment/Plan Assessment/Plan Postop day #3 status post left hip percutaneous pinning due to femoral neck fracture Patient stable for discharge from orthopedic standpoint. Recommend discharge to correction facility for continued physical therapy rehabilitation. Continue toe-touch weightbearing, follow-up as outpatient in 10-14 days postoperative. Continue heparin subcutaneous for DVT prophylaxis
[2016-09-18 11:52] VITALS: BP 160/80
--- NOTE | 2016-09-18 13:32 | Discharge Summary ---
Visit Information Visit Dates Admission Date: 09/15/16 Discharge Date: 09/18/2016 Hospital Course Course Attending Physician: ANDRIA CHO M.D Primary Care Physician: Donnie RICHARDSON MD Hospital Course: 81-year-old female with past medical history of insulin-dependent diabetes mellitus, hypertension, hyperlipidemia, breast cancer status post radiation and lumpectomy, was brought in for evaluation status post fall. She was found to have left femoral neck fracture, and was admitted in the general medical floor for the following issues: Left femoral leg fracture Patient underwent open reduction and internal fixation of left femoral neck fracture with cannulated screw placement on 09/16/16 by orthopedic surgery team. Patient was followed up by orthopedic surgical team, who advised us regarding ambulation, DVT prophylaxis and antibiotics. Patient's hemoglobin on admission was 11 which dropped to 9 after surgery, but has stayed constant afterwards. Orthopedic service mentioned that the initial hemoglobin of 11 could be due to hemoconcentration as she was dehydrated at that time, and that she has history of chronic anemia. Patient was asymptomatic, thus this was not pursued in her current admission. [facility] worked with physical therapy, but still requires continued physical therapy thus discharging her to a short term rehabilitation facility. Patient has to continue toe-touch bearing, and follow-up as an outpatient in 10-14 days postoperatively to orthopedic surgery clinic. Left elbow swelling and injury Patient complained of chronic left elbow swelling. X-ray was done and fracture/ dislocation was ruled out. Adequate analgesia was provided. History of hypertension Losartan 50 mg orally continued daily. Plan to continue. History of insulin-dependent diabetes mellitus Patient was placed on diabetic diet, long-acting insulin Levemir 40 units twice daily, and a low-dose insulin sliding scale. We'll resume her home medications after discharge. History of hyperlipidemia Continued atorvastatin 20 mg orally daily. DVT prophylaxis was provided with subcutaneous heparin. She holds a full CODE STATUS. Allergies: Coded Allergies: NO KNOWN ALLERGIES (03/02/12) Significant Procedures: Patient underwent open reduction and internal fixation of left femoral neck fracture with cannulated screw placement on 09/16/[address] Ellen Gaines. Pertinent Lab Results: Laboratory Tests on discharge: 09/18 0635 Hematology CBC w Diff NO MAN DIFF REQ WBC (4.8 - 10.8 /CUMM) 5.3 RBC (4.20 - 5.40 /CUMM) 3.11 L Hgb (12.0 - 16.0 G/DL) 9.1 L Hct (37 - 47 %) 27.5 L MCV (81.0 - 99.0 FL) 88.2 MCH (27.0 - 31.0 PG) 29.3 RDW (11.5 - 14.5 %) 14.6 H Plt Count (130 - 400 /CUMM) 156 MPV (7.4 - 10.4 FL) 9.1 Gran % (42.2 - 75.2 %) 62.1 Lymphocytes % (20.5 - 51.1 %) 23.3 Monocytes % (1.7 - 9.3 %) 8.1 Eosinophils % (0 - 5 %) 5.8 H Basophils % (0.0 - 2.0 %) 0.7 Absolute Granulocytes (1.4 - 6.5 /CUMM) 3.3 Absolute Lymphocytes (1.2 - 3.4 /CUMM) 1.2 Absolute Monocytes (0.10 - 0.60 /CUMM) 0.4 Absolute Eosinophils (0.0 - 0.7 /CUMM) 0.3 Absolute Basophils (0.0 - 0.2 /CUMM) 0 PUBS MCHC (33.0 - 37.0 G/DL) 33.2 Preoperative hip x-ray: IMPRESSION: Mildly comminuted fracture of the left femoral neck. DICTATED BY: OLGA WORTHY MD DATE/TIME DICTATED:09/15/161716 MOLDED GOODS SPOT PICKER:MOLLY DATE/TIME TRANSCRIBED:09/15/161716 Postoperative hip-xray: IMPRESSION: Fluoroscopic guidance of internal fixation of the left femoral neck fracture with anatomic alignment. DICTATED BY: NATE LAM MD DATE/TIME DICTATED:09/15/162302 MOLDED GOODS SPOT PICKER:MOLLY DATE/TIME TRANSCRIBED:09/15/162302 Head CT done in the emergency department after a fall: IMPRESSION: 1. Large high left parieto-occipital hematoma and soft tissue swelling. Otherwise, no acute intracranial abnormality. 2. No acute cervical spine fracture or subluxation. DICTATED BY: MARINE VENEGAS MD DATE/TIME DICTATED:09/15/161819 MOLDED GOODS SPOT PICKER:MOLLY DATE/TIME TRANSCRIBED:09/15/161819 Disposition Summary Disposition Principal Diagnosis: Left hip femoral neck fracture, status post left hip percutaneous pinning Additional Diagnosis: insulin-dependent diabetes mellitus, hypertension, hyperlipidemia Discharge Disposition: SNF Discharge Instructions General Discharge Information Code Status: Full Code Patient's Diet: Diabetic diet Patient's Activity: Toe-touch weightbearing until next follow-up. Follow-Up Instructions/Appts: Continue toe-touch weightbearing, follow-up as outpatient in 10-14 days postoperative. Please follow up with Dr. Richardson in a week. Please follow up with Dr. Ellen Gaines in 2 weeks. Please follow up with Dr. Neff for further evaluation of cardiac murmur. Please return to emergency if symptoms worsen. Medications at Discharge Discharge Medications: Continue taking these medications: Acetaminophen (Arthritis Pain) 650 MG TABLET.ER 2 Tablet ORAL Every Morning Atorvastatin Calcium (Atorvastatin Calcium) 10 MG TABLET 1 Tablet ORAL DAILY Qty = 90 Losartan Potassium (Losartan Potassium) 100 MG TABLET 1 Tablet ORAL DAILY Qty = 90 Alendronate Sodium (Alendronate Sodium) 70 MG TABLET 1 Tablet ORAL EVERY MONDAY Qty = 12 Instructions: in the morning, at least 30 minutes before the first food, beverage, or medication of the day Metformin HCl (Metformin HCl ER) 500 MG TAB.ER.24H 2 Tablet ORAL TWICE DAILY Qty = 360 Pioglitazone HCl (Actos) 30 MG TABLET 1 Tablet ORAL DAILY Multivit-Min/FA/Lycopen/Lutein (Centrum Silver Tablet) 0.4 MG-300 MCG-250 MCG TABLET 1 Tablet ORAL DAILY Ca/D3/Mag#11/Zinc/Court Monitor/Mihir/Bor (Caltrate 600+D Plus Tablet) 600 MG-800 TABLET 1 Tablet ORAL DAILY Insulin Detemir (Levemir Flextouch) 100 UNIT/ML (3 ML) INSULN.PEN 12 Units Inject into fatty tissue TWICE DAILY Qty = 15 Insulin Aspart (Novolog) 100 UNIT/ML VIAL Units Inject into fatty tissue 3 TIMES DAILY BEFORE MEALS [place]-3/Dha/Epa/Fish Oil (Fish Oil 1,000 MG Softgel) 1,000 MG (120 MG-180 MG) CAPSULE 1 Capsule ORAL DAILY Aspirin (Ecotrin*) 81 MG TABLET.DR 1 Tablet ORAL DAILY Start taking the following new medications: Ferrous Gluconate (Ferrous Gluconate) 324 MG (38 MG IRON) TABLET 325 Milligram ORAL TWICE DAILY Qty = 60 No Refills Docusate Sodium (Docusate Sodium) 100 MG CAPSULE 100 Milligram ORAL DAILY Qty = 30 No Refills Polyethylene Glycol 3350 (Miralax) 17 GRAM/DOSE POWDER 17 Gram ORAL DAILY as needed for CONSTIPATION Qty = 30 No Refills Sennosides/Docusate Sodium (Senna Plus Tablet) 8.6 MG-50 MG TABLET 1 Tablet ORAL TWICE DAILY as needed for CONSTIPATION Qty = 30 No Refills Cholecalciferol (Vitamin D3) 1,000 UNIT TABLET 1,000 International Unit ORAL DAILY Qty = 30 No Refills Omeprazole (Omeprazole) 20 MG TABLET.DR 1 Tablet ORAL DAILY Qty = 30 No Refills Oxycodone HCl (Oxycodone HCl) 5 MG TABLET 1 Tablet ORAL THREE TIMES A DAY NEEDED as needed for SEVERE PAIN Qty = 15 No Refills Copies To: CHRISTY MANN,ELLEN HCristela; Concetta NEFF MD; Donnie RICHARDSON MD
[2016-09-18 14:56] VITALS: BP 160/70
--- NOTE | 2016-10-03 12:01 | Operative Report ---
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 closure. Initial counts were correct. The edge of the tensor and vastus lateralis fascia was reapproximated using a single simple #2-0 Vicryl suture. The deep and superficial subcutaneous closure was achieved with #2-0 dyed and #3-0 undyed Vicryl respectively using an inverted, interrupted technique. The skin was closed using tiffanie with the skin edges everted. A standard, sterile small island dressing was placed with good surgical site coverage. All counts were correct prior to removing the drapes. The foot section of the table was reattached and the patient's lower extremities were removed from the traction table attachments and returned to their neutral resting positions. Bilateral pulses and capillary refill were confirmed to be normal and similar to preoperative status. The LMA was removed without difficulty and the patient was transferred to the hospital bed in the supine position taking care to support the pelvis, hips and lower extremities in the neutral position during transfer. Recovery Room Assessment: The patient was transported to the recovery room in stable condition where gross neurological examination showed no deficits on initial recovery from anesthesia. Gentle log roll of the operative leg was not associated with the same discomfort that she had reported preoperatively although there was still some mild discomfort consistent with her injury, fracture and surgery. She will follow the usual postoperative protocol for minimally invasive open reduction and interfragmentary cannulated screw internal fixation of minimally displaced minimally valgus angulated and impacted overall stable and well fixed subcapital femoral neck hip fracture. This will include early mobilization, supervised transfers and ambulation with progressive protected (toe-touch only) weight- bearing as tolerated using a walker, and discharge planning in preparation for transfer to inpatient rehabilitation program as patient is an excellent short- term rehabilitation candidate by orthopaedic criterion. Findings: 1) Good insertional and final torque of screws with reasonably good ultimate fixation of fracture and fracture fragments particularly given known osteoporosis and decreased bone density. 2) Good alignment and fixation of fracture as documented by fluoroscopic images including gentle dynamic rotation views demonstrating singular motion of the neck and head fragments after fixation. 3) Good ultimate position and fixation of screws by final fluoroscopic image assessment. Discharge Disposition: PACU CC: EDER MANN,ELLEN Davis
== END 2016-09-18 17:40 | DRG 482 ==
LOC: ERH 16:37 → ER-OR 16:56 → ERH 16:56 → 2NA 23:39 → ENPENDDIS 09-18 14:26 → 2NA 09-18 17:40
PROVIDERS: Emergency Medicine; Internal Medicine; Internal Medicine Infectious Disease; Student in an Organized Health Care Education/Training Program; ADMIT Internal Medicine
PROC: 0QH704Z Insertion of Internal Fixation Device into Left Upper Femur, Open Approach (ICD-10-PCS; principal; 2016-09-15)
PROC: 0QS7XZZ Reposition Left Upper Femur, External Approach (ICD-10-PCS; principal; 2016-09-15)
DX: S72.012A Unspecified intracapsular fracture of left femur, initial encounter for closed fracture (principal); E11.9 Type 2 diabetes mellitus without complications; D64.9 Anemia, unspecified; I10 Essential (primary) hypertension; E78.5 Hyperlipidemia, unspecified; S51.012A Laceration without foreign body of left elbow, initial encounter; Z85.3 Personal history of malignant neoplasm of breast; W19.XXXA Unspecified fall, initial encounter; Y92.488 Other paved roadways as the place of occurrence of the external cause; S00.03XA Contusion of scalp, initial encounter; M81.0 Age-related osteoporosis without current pathological fracture; Z79.4 Long term (current) use of insulin; Y99.8 Other external cause status
CPT/HCPCS: 2NASP; 36415; 72170; 73110-LT; 73502-LT; 82436; 83010; 87086; 93005; 93010; 96372; 96374; 97110-GO; 97161-GP; 97530-GO; J0131; J0690; J1644; J3490